=== PATIENT | female | born 1950 | race African-American/Black ===

== ENCOUNTER 2024-04-09 01:50 | Emergency (ER) | payer MEDICARE, OTHER ==
[~2024-04-09] VITALS: Ht 165.1 cm; Wt 78.0 kg
[2024-04-09 02:01] VITALS: O2SAT 99
[2024-04-09] MEDS ORDERED: ONDANSETRON 4MG ODT PO STA (02:02)
[2024-04-09] MEDS ORDERED: DICYCLOMINE 10 MG/5 ML ORAL SYR PO STA (02:02)
[2024-04-09] MEDS ORDERED: POLYETHYLENE GLYCOL 3350 (17GM) 1 DOSE PACK PO ONE (02:15)
[2024-04-09] MEDS ORDERED: ONDANSETRON 4MG ODT PO NR (02:45)
[2024-04-09] MEDS ORDERED: DICYCLOMINE HCL 10MG CAPSULE PO NR (02:45)
[2024-04-09] MEDS ORDERED: SENN-362 MT (04:16)
[2024-04-09] MEDS ORDERED: POLY17PO3 MT (04:16)
[2024-04-09] MEDS ORDERED: DOCU-138 MT (04:16)
[2024-04-09 04:30] VITALS: BP 131/70; PULSE 78; RESP 18; TEMP 36.94740; O2SAT 100
== END 2024-04-09 04:31 | disposition home or self-care (01) ==
LOC: ER 01:50
DX: K59.00 Constipation, unspecified (principal); I10 Essential (primary) hypertension
CPT/HCPCS: 74176; 99284